=== PATIENT | female | born 1960 | race Caucasian/White ===

== ENCOUNTER → 2017-01-10 | Outpatient (CLI) | payer OTHER | END | disposition home or self-care (01) | LOC: RADMRIMAIN 19:03 | PROVIDERS: ATTEND Orthopaedic Surgery | DX: Z53.9 Procedure and treatment not carried out, unspecified reason (principal) ==

== ENCOUNTER → 2017-01-16 | Outpatient (CLI) | payer OTHER ==
--- NOTE | 2017-01-17 02:56 | MR ---
EXAMINATION TYPE: MR hip RT wo con DATE OF EXAM: 01/16/2017 COMPARISON: NONE HISTORY: Right Hip Pain with Clicking x1 year Standard multiplanar, multisequence MRI departmental protocol Multiplanar, multisequence images of the right hip and pelvis were acquired. FINDINGS: Hip joint spaces are fairly well-maintained. Proximal femurs are intact. There is no eviden ce of avascular necrosis. There is no sign of hip joint effusion. I see no bony destructive process. There is no sign of a pelvic mass. There is mild acetabular spurring. IMPRESSION: Negative MR scan of the right hip joint. Minimal acetabular spurring is noted.
== END | disposition home or self-care (01) ==
LOC: RADMRIMAIN 18:53
PROVIDERS: ATTEND Orthopaedic Surgery
DX: M89.8X5 Other specified disorders of bone, thigh (principal)

== ENCOUNTER → 2017-06-07 | Outpatient (CLI) | payer OTHER ==
--- NOTE | 2017-06-09 10:58 | MM ---
Reason for exam: screening (asymptomatic). Last mammogram was performed 1 year ago. History: Patient is postmenopausal and history of other cancer. Taking estrogen for 5 years beginning at age 52. Physical Findings: A clinical breast exam by your physician is recommended on an annual basis and results should be correlated with mammographic findings. MG Screening Mammo w CAD Bilateral CC and MLO view(s) were taken. Prior study comparison: May 30, 2016, bilateral MG screening mammo w CAD. May 28, 2015, bilateral MG screening mammo w CAD. The breast tissue is heterogeneously dense. This may lower the sensitivity of mammography. No significant changes when compared with prior studies. ASSESSMENT: Benign, BI-RAD 2 RECOMMENDATION: Routine screening mammogram of both breasts in 1 year.
== END | disposition home or self-care (01) ==
LOC: RADMAMWWP 15:13
PROVIDERS: ATTEND Family Medicine
DX: Z12.31 Encounter for screening mammogram for malignant neoplasm of breast (principal)

== ENCOUNTER → 2018-08-07 | Outpatient (CLI) | payer BC ==
--- NOTE | 2018-08-08 10:41 | MM ---
Reason for exam: screening (asymptomatic). Last mammogram was performed 1 year and 2 months ago. History: Patient is postmenopausal and has history of other cancer at age 48. Took estrogen for 5 years beginning at age 52. Physical Findings: A clinical breast exam by your physician is recommended on an annual basis and results should be correlated with mammographic findings. MG Screening Mammo w CAD Bilateral CC and MLO view(s) were taken. Prior study comparison: June 07, 2017, bilateral MG screening mammo w CAD. May 30, 2016, bilateral MG screening mammo w CAD. The breast tissue is heterogeneously dense. This may lower the sensitivity of mammography. No significant changes when compared with prior studies. ASSESSMENT: Benign, BI-RAD 2 RECOMMENDATION: Routine screening mammogram of both breasts in 1 year.
== END | disposition home or self-care (01) ==
LOC: RADMAMWWP 09:47
PROVIDERS: ATTEND Family Medicine
DX: Z12.31 Encounter for screening mammogram for malignant neoplasm of breast (principal)
CPT/HCPCS: 77067

== ENCOUNTER → 2019-08-08 | Outpatient (CLI) | payer BC ==
--- NOTE | 2019-08-09 14:17 | MM ---
Reason for exam: screening (asymptomatic). Last mammogram was performed 1 year ago. History: Patient is postmenopausal and has history of other cancer at age 48. Took estrogen for 5 years beginning at age 52. Physical Findings: A clinical breast exam by your physician is recommended on an annual basis and results should be correlated with mammographic findings. MG 3D Screening Mammo W/Cad Bilateral CC and MLO view(s) were taken. Prior study comparison: August 07, 2018, bilateral MG screening mammo w CAD. June 07, 2017, bilateral MG screening mammo w CAD. The breast tissue is heterogeneously dense. This may lower the sensitivity of mammography. Right upper outer quadrant middle depth focal asymmetry. Left upper inner quadrant anterior middle depth focal asymmetry. ASSESSMENT: Incomplete: need additional imaging evaluation, BI-RAD 0 RECOMMENDATION: Special view mammogram of both breasts. If lesion persists on supplemental views, image directed ultrasound is recommended. [facility] will attempt to contact patient to return for supplemental views and ultrasound if indicated.
== END | disposition home or self-care (01) ==
LOC: RADMAMWWP 09:20
PROVIDERS: ATTEND Family Medicine
DX: Z12.31 Encounter for screening mammogram for malignant neoplasm of breast (principal)
CPT/HCPCS: 77063; 77067

== ENCOUNTER → 2019-08-20 | Outpatient (CLI) | payer BC ==
--- NOTE | 2019-08-20 11:08 | MM ---
Reason for exam: additional evaluation requested from abnormal screening. Last mammogram was performed less than 1 month ago. History: Patient is postmenopausal and has history of other cancer at age 48. Took estrogen for 5 years beginning at age 52. Physical Findings: Nurse did not find any significant physical abnormalities on exam. MG 3D Work Up W/Cad JADE Bilateral spot compression CC, spot compression MLO, and ML view(s) were taken. Prior study comparison: August 08, 2019, bilateral MG 3d screening mammo w/cad. August 07, 2018, bilateral MG screening mammo w CAD. The breast tissue is heterogeneously dense. This may lower the sensitivity of mammography. No discrete lesions persist on additional views. These results were verbally communicated with the patient and result sheet given to the patient on 08/20/19. ASSESSMENT: Negative, BI-RAD 1 RECOMMENDATION: Return to routine screening mammogram schedule for both breasts.
== END | disposition home or self-care (01) ==
LOC: RADMAMWWP 09:01
PROVIDERS: ATTEND Family Medicine
DX: R92.8 Other abnormal and inconclusive findings on diagnostic imaging of breast (principal)
CPT/HCPCS: 77062; 77066

== ENCOUNTER → 2020-09-09 | Outpatient (CLI) | payer BC ==
--- NOTE | 2020-09-14 10:20 | MM ---
Reason for exam: screening (asymptomatic). Last mammogram was performed 1 year and 1 month ago. History: Patient is postmenopausal and has history of other cancer at age 48. Took estrogen for 5 years beginning at age 52. Physical Findings: A clinical breast exam by your physician is recommended on an annual basis and results should be correlated with mammographic findings. MG Screening Mammo w CAD Bilateral CC and MLO view(s) were taken. Prior study comparison: August 08, 2019, bilateral MG 3d screening mammo w/cad. August 07, 2018, bilateral MG screening mammo w CAD. June 07, 2017, bilateral MG screening mammo w CAD. The breast tissue is heterogeneously dense. This may lower the sensitivity of mammography. No significant changes when compared with prior studies. ASSESSMENT: Benign, BI-RAD 2 RECOMMENDATION: Routine screening mammogram of both breasts in 1 year.
== END | disposition home or self-care (01) ==
LOC: RADMAMWWP 09:54
PROVIDERS: ATTEND Family Medicine
DX: Z12.31 Encounter for screening mammogram for malignant neoplasm of breast (principal); Z78.0 Asymptomatic menopausal state
CPT/HCPCS: 77067

== ENCOUNTER → 2021-09-22 | Outpatient (CLI) | payer BC ==
--- NOTE | 2021-09-23 12:55 | MM ---
Reason for exam: screening (asymptomatic). Last mammogram was performed 1 year ago. History: Patient is postmenopausal and has history of other cancer at age 48. Took estrogen for 9 years beginning at age 52. Physical Findings: A clinical breast exam by your physician is recommended on an annual basis and results should be correlated with mammographic findings. MG Screening Mammo w CAD Bilateral CC and MLO view(s) were taken. Technologist: Becca Cai RT (R)(M) Prior study comparison: September 09, 2020, bilateral MG screening mammo w CAD. August 20, 2019, bilateral MG 3d work up w/cad JADE. The breast tissue is heterogeneously dense. This may lower the sensitivity of mammography. There are benign appearing round calcifications bilaterally. There is chronic nodularity in the left breast. There is no discrete abnormality. ASSESSMENT: Benign, BI-RAD 2 RECOMMENDATION: Routine screening mammogram of both breasts in 1 year.
== END | disposition home or self-care (01) ==
LOC: RADMAMWWP 09:02
PROVIDERS: ATTEND Family Medicine
DX: Z12.31 Encounter for screening mammogram for malignant neoplasm of breast (principal); Z78.0 Asymptomatic menopausal state
CPT/HCPCS: 77067

== ENCOUNTER → 2022-09-26 | Outpatient (CLI) | payer BC ==
--- NOTE | 2022-09-27 09:58 | MM ---
Reason for Exam: Screening (asymptomatic). Last screening mammogram was performed 12 month(s) ago. Patient History: Menarche at age 14. First Full-Term at age 21. Hysterectomy at age 45. Postmenopausal. Other cancer, age 48. Currently using Estrogen, beginning at age 52 for 9 years. Risk Values: Ayesha 5 year model risk: 1.0%. NCI Lifetime model risk: 5.3%. Prior Study Comparison: 08/20/2019 Bilateral Diagnostic Mammogram, [facility]. 09/09/2020 Bilateral Screening Mammogram, [facility]. 09/22/2021 Bilateral Screening Mammogram, [facility]. Tissue Density: The breast tissue is heterogeneously dense. This may lower the sensitivity of mammography. Findings: Analyzed By CAD. Pattern appears symmetrical stable. No significant interval change is evident. No suspicious groups of microcalcifications, spiculated or lobular masses, architectural distortion or other secondary signs of malignancy are mammographically apparent. Overall Assessment: Benign, BI-RAD 2 Management: Screening Mammogram of both breasts in 1 year. A negative mammogram report should not preclude additional follow up of suspicious palpable abnormalities. Patient should continue monthly self breast exam. A clinical breast exam by your physician is recommended on an annual basis and results should be correlated with mammographic findings. Electronically signed and approved by: Riki Bowling D.O. Radiologis
== END | disposition home or self-care (01) ==
LOC: RADMAMWWP 09:31
PROVIDERS: ATTEND Family Medicine
DX: Z12.31 Encounter for screening mammogram for malignant neoplasm of breast (principal); Z78.0 Asymptomatic menopausal state
CPT/HCPCS: 77067

== ENCOUNTER 2023-08-23 08:04 | Day surgery (SDC) | payer BC ==
[2023-08-21 16:21] VITALS: BMI 34.0
--- NOTE | 2023-08-23 07:34 | P.GSHP ---
History of Present Illness H&P Date: 08/23/23 CHIEF COMPLAINT: GERD and colon screen HISTORY OF PRESENT ILLNESS: The patient is a 63-year-old female who presents with gastroesophageal reflux disease and need for colon screen. Upper and lower endoscopy were offered for further evaluation and management. PAST MEDICAL HISTORY: Please see list. PAST SURGICAL HISTORY: Please see list. MEDICATIONS: Please see list. ALLERGIES: Please see list. SOCIAL HISTORY: No illicit drug use FAMILY HISTORY: No reports of Crohn disease or ulcerative colitis. REVIEW OF ORGAN SYSTEMS: CONSTITUTIONAL: No reports of fevers or chills. GI: Denies any blood in stools or constipation. PHYSICAL EXAM: VITAL SIGNS: Stable GENERAL: Well-developed pleasant in no acute distress. HEENT: No scleral icterus. Extraocular movements grossly intact. Moist buccal mucosa. NECK: Supple without lymphadenopathy. CHEST: Unlabored respirations. Equal bilateral excursions. CARDIOVASCULAR: Regular rate and rhythm. Distal 2+ pulses. ABDOMEN: Soft, nondistended. MUSCULOSKELETAL: No clubbing, cyanosis, or edema. ASSESSMENT: 1. Gastroesophageal reflux disease 2. Colon screen. PLAN: 1. Recommend proceeding with an upper and lower endoscopy Past Medical History Past Medical History: Cancer, GERD/Reflux Additional Past Medical History / Comment(s): skin CA History of Any Multi-Drug Resistant Organisms: None Reported Additional Past Surgical History / Comment(s): bladder suspension Past Anesthesia/Blood Transfusion Reactions: No Reported Reaction, Motion Sickness Additional Past Anesthesia/Blood Transfusion Reaction / Comment(s): no hx blood transfusion Smoking Status: Never smoker - Past Family History Mother Family Medical History: Cancer Additional Family Medical History / Comment(s): colon Medications and Allergies Home Medications Medication Instructions Recorded Confirmed Type Calcium Carbonate [Calcium] 600 mg PO DAILY 08/21/23 08/21/23 History Cetirizine HCl [Zyrtec] 10 mg PO DAILY 08/21/23 08/21/23 History Cholecalciferol [Vitamin D3 (25 25 mcg PO DAILY 08/21/23 08/21/23 History Mcg = 1000 Iu)] Ferrous Sulfate [Feosol] 325 mg PO DAILY 08/21/23 08/21/23 History Loratadine [Claritin] 10 mg PO DAILY 08/21/23 08/21/23 History Multivitamins, Thera [Multivitamin 1 tab PO DAILY 08/21/23 08/21/23 History (formulary)] Omeprazole 40 mg PO DAILY 08/21/23 08/21/23 History estradioL [Minal 0.0375 MG/24 HR] 1 patch TRANSDERM Q84H 08/21/23 08/21/23 History oxyBUTYnin chloride [oxyBUTYnin 5 mg PO DAILY 08/21/23 08/21/23 History chloride ER] Allergies Allergy/AdvReac Type Severity Reaction Status Date / Time Penicillins Allergy Unknown Verified 08/21/23 15:58 Childhood
[~2023-08-23 08:04] MED LIST: LIDOCAINE 1% (10MG/ML) FOR IV START INTRADERMA PRN
[2023-08-23] MEDS: LACTATED RINGERS 1,000 ML IV SCH (08:21)
[2023-08-23 08:47] VITALS: TEMP 98.1
[2023-08-23] MEDS ORDERED: PROPOFOL 10 MG/ML 20 ML VIAL IV ONE (09:06)
[2023-08-23] MEDS ORDERED: LIDOCAINE 1% INJ 10MG/ML (20 ML MDV) ONE (09:06)
--- NOTE | 2023-08-23 09:19 | P.PCN ---
Date of Procedure: 08/23/23 Description of Procedure: PREOPERATIVE DIAGNOSIS: Gastroesophageal reflux disease. POSTOPERATIVE DIAGNOSIS: Gastroesophageal reflux disease. Gastric polyp Gastritis OPERATION: Esophagogastroduodenoscopy with biopsies along the esophagus, antrum and duodenum SURGEON: Peggy Quintero MD ANESTHESIA: MAC. INDICATIONS: The patient is a 63-year-old female who presents with reflux disease. Benefits and risks of the procedure were described. Informed consent was obtained. DESCRIPTION: The patient was brought into the endoscopy suite and laid in the left lateral decubitus position. An Olympus gastroscope was passed along the posterior oropharynx down to the distal esophagus where the squamocolumnar junction was encountered at 36 cm from the incisors. The stomach was entered and no bile reflux was found. Additional findings are listed below. Biopsies with cold forceps were obtained of the antrum. The first through third portion of the duodenum was examined. Retroflexion of the scope confirmed Hill grade 3 lower esophageal valve. The squamocolumnar junction demonstrated LA grade B erosive e sophagitis. The stomach was desufflated. The patient tolerated the procedure well. FINDINGS: Squamocolumnar junction 36cm from the incisors. Diaphragmatic hiatus at 37 cm. Hiatal hernia, 1 cm Few scattered gastric polyps, 3 mm, benign Hill grade 2 lower esophageal valve. LA grade B erosive esophagitis. Biopsies obtained Biopsies obtained of the duodenum. Chronic gastritis with biopsies obtained. RECOMMENDATIONS: Upper endoscopy as needed.
--- NOTE | 2023-08-23 09:57 | P.PCN ---
Date of Procedure: 08/23/23 Description of Procedure: PREOPERATIVE DIAGNOSIS: Family history colon cancer Colonoscopy screening. POSTOPERATIVE DIAGNOSIS: Colonoscopy screening. OPERATION: Colonoscopy to the cecum, ileocecal valve and appendiceal orifice. SURGEON: Peggy Quintero MD. ANESTHESIA: MAC. INDICATIONS: The patient is a 63-year-old female who presents for colonoscopy screening. Benefits and risks were described and informed consent was obtained. DESCRIPTION OF PROCEDURE: The patient had undergone Golytely prep. The patient had been brought into the operating room and laid in the left lateral decubitus position. After adequate intravenous sedation, the rectum was examined with 2% lidocaine jelly. External hemorrhoids were encountered. The rectal tone was within normal limits. No lesions were palpated in the rectal vault. An Olympus colonoscope was advanced until the cecum, ileocecal valve and appendiceal orifice were clearly viewed. The prep was fair. No scattered diverticulosis was encountered. No colonic polyps were found. No evidence of focal colitis was found. Retroflexion of the scope demonstrated grade 1 internal hemorrhoids without active bleeding or inflammation. The colon was desufflated. The patient had tolerated the procedure well. Withdrawal time was over 6 minutes. FINDINGS: Aronchick preparation quality scale 2+ (1-5) Internal hemorrhoids, grade 3 External prolapsed hemorrhoids, grade 3 No arteriovenous malformations. No adenomatous polyps. No focal colitis. RECOMMENDATIONS: Lower endoscopy in 5 years, 2028 or Cologuard Plan - Discharge Summary Discharge Rx Participant: No New Discharge Prescriptions: Continue estradioL [Minal 0.0375 MG/24 HR] 1 patch TRANSDERM Q84H Loratadine [Claritin] 10 mg PO DAILY Cholecalciferol [Vitamin D3 (25 Mcg = 1000 Iu)] 25 mcg PO DAILY Omeprazole 40 mg PO DAILY Ferrous Sulfate [Iron (65 MG Elemental)] 325 mg PO DAILY oxyBUTYnin chloride [oxyBUTYnin chloride ER] 5 mg PO DAILY Multivitamins, Thera [Multivitamin (formulary)] 1 tab PO DAILY Cetirizine HCl [Zyrtec] 10 mg PO DAILY Calcium Carbonate [Calcium] 600 mg PO DAILY Discharge Medication List Calcium Carbonate [Calcium] 600 mg PO DAILY 08/21/23 [History] Cetirizine HCl [Zyrtec] 10 mg PO DAILY 08/21/23 [History] Cholecalciferol [Vitamin D3 (25 Mcg = 1000 Iu)] 25 mcg PO DAILY 08/21/23 [History] Ferrous Sulfate [Iron (65 MG Elemental)] 325 mg PO DAILY 08/21/23 [History] Loratadine [Claritin] 10 mg PO DAILY 08/21/23 [History] Multivitamins, Thera [Multivitamin (formulary)] 1 tab PO DAILY 08/21/23 [History] Omeprazole 40 mg PO DAILY 08/21/23 [History] estradioL [Minal 0.0375 MG/24 HR] 1 patch TRANSDERM Q84H 08/21/23 [History] oxyBUTYnin chloride [oxyBUTYnin chloride ER] 5 mg PO DAILY 08/21/23 [History] Follow up Appointment(s)/Referral(s): Peggy Quintero MD [STAFF PHYSICIAN] - 09/19/23 11:00 am Patient Instructions/Handouts: *Surgery [facility] - (Anesthesia) Discharge Instructions Outpatient Surgery Activity/Diet/Wound Care/Special Instructions: Colonoscopy in 5 years, 2028 or Cologuard Discharge Disposition: HOME SELF-CARE
[2023-08-23 10:35] VITALS: BP 135/73; PULSE 65; RESP 18
== END 2023-08-23 10:11 | disposition home or self-care (01) ==
LOC: ORWHC2ENDO 08:04
PROVIDERS: ATTEND Surgery Plastic and Reconstructive Surgery
DX: Z12.11 Encounter for screening for malignant neoplasm of colon (principal); K29.50 Unspecified chronic gastritis without bleeding; K64.2 Third degree hemorrhoids; K64.4 Residual hemorrhoidal skin tags; K21.9 Gastro-esophageal reflux disease without esophagitis; K31.7 Polyp of stomach and duodenum; K44.9 Diaphragmatic hernia without obstruction or gangrene; Z80.0 Family history of malignant neoplasm of digestive organs; Z79.899 Other long term (current) drug therapy; Z88.0 Allergy status to penicillin; Z85.828 Personal history of other malignant neoplasm of skin
CPT/HCPCS: 88305; 45378; 43239; J2001; J2704

== ENCOUNTER → 2023-10-31 | Outpatient (CLI) | payer BC ==
--- NOTE | 2023-11-02 12:36 | MM ---
Reason for Exam: Screening (asymptomatic). Last mammogram was performed 1 year(s) and 1 month(s) ago. Patient History: Menarche at age 14. First Full-Term at age 21. Hysterectomy at age 45. Postmenopausal. Other cancer, age 48. Currently using Estrogen, beginning at age 52 for 9 years. Risk Values: Ayesha 5 year model risk: 1.1%. NCI Lifetime model risk: 5.2%. Prior Study Comparison: 09/09/2020 Bilateral Screening Mammogram, [facility]. 09/22/2021 Bilateral Screening Mammogram, [facility]. 09/26/2022 Bilateral MG screening mammo w CAD, [facility]. Tissue Density: The breasts are heterogeneously dense, which may obscure small masses. Findings: Analyzed By CAD. Right breast: There is no suspicious group of microcalcifications or new suspicious mass. Left breast: There is no suspicious group of microcalcifications or new suspicious mass. Overall Assessment: Negative, BI-RAD 1 Management: Screening Mammogram of both breasts in [address] [facility] will attempt to contact patient to return for supplemental views and ultrasound if indicated. Patient should continue monthly self-breast exams. A clinical breast exam by your physician is recommended on an annual basis. This exam should not preclude additional follow-up of suspicious palpable abnormalities. Note on Ayesha scores and lifetime risk: 1. A Ayesha score greater than 3% is considered moderate risk. If this is the case, consider specialist referral to assess eligibility for a risk reducing agent. 2. If overall lifetime risk for the development of breast cancer is 20% or higher, the patient may qualify for future screening with alternating mammogram and breast MRI. Electronically signed and approved by: Kevin Jessica DO
== END | disposition home or self-care (01) ==
LOC: RADMAMWWP 09:10
PROVIDERS: ATTEND Family Medicine
DX: Z12.31 Encounter for screening mammogram for malignant neoplasm of breast (principal); Z78.0 Asymptomatic menopausal state
CPT/HCPCS: 77063; 77067

== ENCOUNTER → 2024-05-08 | Outpatient (CLI) | payer BC ==
--- NOTE | 2024-05-08 11:32 | US ---
EXAMINATION TYPE: US gallbladder DATE OF EXAM: 05/08/2024 COMPARISON: NONE CLINICAL INDICATION: Female, 64 years old with history of R10.11 RUQ PAIN; pain per order TECHNIQUE: Grayscale and color Doppler imaging of the right upper quadrant. FINDINGS: EXAM MEASUREMENTS: Liver Length: 14.0 cm Gallbladder Wall: 0.3 cm CBD: 0.4 cm, color Doppler imaging was utilized to isolate the common bile duct for measurement. Right Kidney: 9.9x4.0x5.3 cm BOOK REPAIRER NOTES: limited due to bowel and gas Pancreas: limited Tail obscured by overlying bowel gas Liver: coarse echotexture Gallbladder: measures upper limits Evidence for sonographic Diana's sign: No CBD: portions seen wnl Right Kidney: No hydronephrosis or masses seen IMPRESSION: 1. Coarse echo pattern to the liver is nonspecific but most typical of hepatic steatosis or mild unde rlying hepatocellular disease. 2. No evidence of gallstones. Gallbladder wall measures at the upper limits of normal in thickness me asuring 3 mm. [facility], , 05/08/2024 11:29 AM
== END | disposition home or self-care (01) ==
LOC: RADUSWWP 07:39
PROVIDERS: ATTEND Surgery Plastic and Reconstructive Surgery
DX: K76.89 Other specified diseases of liver (principal)
CPT/HCPCS: 76705

== ENCOUNTER 2024-05-16 11:17 | Day surgery (SDC) | payer BC ==
--- NOTE | 2024-05-16 08:43 | P.GSHP ---
History of Present Illness H&P Date: 05/16/24 CHIEF COMPLAINT: Paraesophageal hiatal hernia with gastroesophageal reflux disease. HISTORY OF PRESENT ILLNESS: The patient is a 64-year-old female who presents with symptomatic paraesophageal hiatal hernia over one year with gastroesophageal reflux disease. She has completed upper endoscopy workup. Now she presents for surgical intervention. PAST MEDICAL HISTORY: Please see list. PAST SURGICAL HISTORY: Please see list. MEDICATIONS: Please see list. ALLERGIES: Please see list. SOCIAL HISTORY: No illicit drug use FAMILY HISTORY: No reports of Crohn disease or ulcerative colitis. REVIEW OF ORGAN SYSTEMS: CONSTITUTIONAL: No reports of fevers or chills. GI: Denies any blood in stools or constipation. PHYSICAL EXAM: VITAL SIGNS: Stable GENERAL: Well-developed pleasant and in no acute distress. HEENT: No scleral icterus. Extraocular movements grossly intact. Moist buccal mucosa. NECK: Supple without lymphadenopathy. CHEST: Unlabored respirations. Equal bilateral excursions. CARDIOVASCULAR: Regular rate and rhythm. Distal 2+ pulses. ABDOMEN: Soft, nondistended. No peritoneal signs. MUSCULOSKELETAL: No clubbing, cyanosis, or edema. SKIN: Well-perfused. Good skin turgor. REPORTS: Upper endoscopy demonstrates paraesophageal hiatal hernia BARIUM SWALLOW: Images reviewed demonstrating paraesophageal hiatal hernia. This is my independent interpretation. REPORTS: Cardiology risk assessment obtained. Please see chart. ASSESSMENT: 1. Diaphragmatic paraesophageal hiatal hernia with severe gastroesophageal reflux disease. PLAN: 1. Recommend proceeding with a robotic paraesophageal hiatal hernia with possible mesh. 2. Benefits and risks of surgical intervention was discussed including possibility of open technique. 3. Inpatient hospitalization recommended of 2 nights 4. DVT prophylaxis. 5. Antibiotic prophylaxis. 6. She has also completed a very low caloric high-protein diet to address underlying hepatomegaly. 7. Non narcotic pain management including abdominal wall block described 8. Blood sugar glucose described. 9. Weight loss management described. Past Medical History Past Medical History: Cancer, GERD/Reflux Additional Past Medical History / Comment(s): Hx skin cancer. Vertigo. History of Any Multi-Drug Resistant Organisms: None Reported Past Surgical History: Bladder Surgery, Section Additional Past Surgical History / Comment(s): Bladder suspension, colonoscopy, EGD. Past Anesthesia/Blood Transfusion Reactions: Motion Sickness, Postoperative Nausea & Vomiting (PONV) Additional Past Anesthesia/Blood Transfusion Reaction / Comment(s): No hx blood transfusion. Vertigo. Smoking Status: Never smoker - Past Family History Mother Family Medical History: Cancer Additional Family Medical History / Comment(s): Colon cancer. Medications and Allergies Home Medications Medication Instructions Recorded Confirmed Type Cholecalciferol [Vitamin D3 (25 25 mcg PO HS 08/21/23 05/15/24 History Mcg = 1000 Iu)] Ferrous Sulfate [Iron (65 MG 325 mg PO HS 08/21/23 05/15/24 History Elemental)] Loratadine [Claritin] 10 mg PO HS 08/21/23 05/15/24 History Multivitamins, Thera [Multivitamin 1 tab PO HS 08/21/23 05/15/24 History (formulary)] estradioL [Minal 0.0375 MG/24 HR] 1 patch TRANSDERM SUWE 08/21/23 05/15/24 History oxyBUTYnin chloride [oxyBUTYnin 5 mg PO HS 08/21/23 05/15/24 History chloride ER] Calcium With Vitamin D3 1 tab PO HS 02/13/24 05/15/24 History Fexofenadine HCl [Karlee Allergy] 180 mg PO HS 02/13/24 05/15/24 History Allergies Allergy/AdvReac Type Severity Reaction Status Date / Time bee venom protein (honey bee) Allergy Swelling Verified 05/15/24 09:49 Penicillins Allergy Unknown Verified 05/15/24 09:49 Childhood
[~2024-05-16 11:17] MED LIST changes: +HYDROmorphone 0.5 MG/0.5 ML SYRINGE IVP PRN; +ONDANSETRON 4 MG/2 ML VIAL IVP PRN
[2024-05-16] MEDS: IV FLUID CONTINUATION 1,000 ML IV ONE (11:31)
[2024-05-16] MEDS: ACETAMINOPHEN TAB 500 MG TAB PO PRN (11:51)
[2024-05-16] MEDS: LACTATED RINGERS 1,000 ML IV SCH (11:53)
[2024-05-16 12:12] LABS: Basophils % (A) 0 %; Eosinophils # (A) 0.3 k/uL (0-0.7); Eosinophils % (A) 5 %; HCT 38.4 % (34.0-46.0); HGB 12.5 gm/dL (11.4-16.0); Lymphocytes # (A) 1.2 k/uL (1.0-4.8); Lymphocytes % (A) 21 %; MCH 28.6 pg (25.0-35.0); MCHC 32.5 g/dL (31.0-37.0); Mean Platelet Volume 9.1; Monocytes # (A) 0.2 k/uL (0-1.0); Monocytes % (A) 4 %; Neutrophils # (A) 3.8 k/uL (1.3-7.7); Neutrophils % (A) 68 %; Platelet Count 234 k/uL (150-450); RBC 4.36 m/uL (3.80-5.40); RDW 13.3 % (11.5-15.5); WBC 5.6 k/uL (3.8-10.6)
[2024-05-16] MEDS: SCOPOLAMINE 1 MG/72 HR PATCH TRANSDERM STA (12:43)
[2024-05-16] MEDS: fentaNYL (PF) 50 MCG/ML 2 ML AMP IVP STA (12:44)
[2024-05-16] MEDS: MIDAZOLAM 2 MG/2 ML VIAL IV STA (12:45)
[2024-05-16] MEDS: DEXAMETHASONE SOD PHOSPHATE 4 MG/ML 1 ML VIAL IV ONE (12:46)
[2024-05-16] MEDS: ONDANSETRON 4 MG/2 ML VIAL IVP ONE (12:46)
[2024-05-16] MEDS: HEPARIN SODIUM,PORCINE 5,000 UNIT/ML 1 ML VIAL SQ PRN (12:48)
[2024-05-16] MEDS ORDERED: KETOROLAC 15 MG/ML 1 ML VIAL ONE (12:55)
[2024-05-16] MEDS ORDERED: HYDROmorphone (PF) 1 MG/ML ONE (12:55)
[2024-05-16] MEDS ORDERED: SODIUM CHLORIDE 0.9% (PF) 10 ML VIAL ONE (12:55)
[2024-05-16] MEDS ORDERED: fentaNYL (PF) 50 MCG/ML 2 ML AMP ONE (12:55)
[2024-05-16] MEDS ORDERED: ROPIVACAINE 5 MG/ML 30 ML VIAL ONE (12:55)
[2024-05-16] MEDS ORDERED: ROCURONIUM 10 MG/ML (5 ML VIAL) IV ONE (12:55)
[2024-05-16] MEDS ORDERED: MIDAZOLAM 2 MG/2 ML VIAL ONE (12:55)
[2024-05-16] MEDS ORDERED: LIDOCAINE 1% INJ 10MG/ML (20 ML MDV) ONE (12:55)
[2024-05-16] MEDS ORDERED: SUCCINYLCHOLINE CHLORIDE 200 MG/10 ML VIAL IV ONE (12:55)
[2024-05-16] MEDS ORDERED: NEOSTIGMINE 1 MG/ML 10 ML VIAL ONE (12:55)
[2024-05-16] MEDS ORDERED: PROPOFOL 10 MG/ML 20 ML VIAL IV ONE (12:55)
[2024-05-16] MEDS ORDERED: GLYCOPYRROLATE 0.2 MG/ML 2 ML VIAL ONE (12:55)
[2024-05-16 13:18] LABS: ALT 18 U/L (4-34); AST 27 U/L (14-36); African American GFR (CKD) >90 (>60 ml/min/1.73 sqM); Albumin 4.1 g/dL (3.5-5.0); Alkaline Phosphatase 69 U/L (38-126); Anion Gap 6 mmol/L; Blood Urea Nitrogen 18 mg/dL (7-17); Calcium 9.3 mg/dL (8.4-10.2); Carbon Dioxide 24 mmol/L (22-30); Chloride 107 mmol/L (98-107); Glucose 89 mg/dL (74-99); Non-African American GFR(CKD) 80 (>60 ml/min/1.73 sqM); Potassium 4.3 mmol/L (3.5-5.1); Sodium 137 mmol/L (137-145); Total Bilirubin 0.4 mg/dL (0.2-1.3); Total Protein 6.5 g/dL (6.3-8.2)
[2024-05-16] MEDS: LIDOCAINE 1%-EPI 1:100,000 20 ML VIAL SQ ONE (13:27)
--- NOTE | 2024-05-16 14:43 | P.ANPRN ---
Procedure Note - Anesthesia - Nerve Block Performed Bilateral Erector Spinae Single Time Out Performed: Yes (1228) Date of Procedure: 05/16/24 Procedure Start Time: 12:29 Procedure Stop Time: 12:36 Location of Patient: PreOp Indication: Acute Post-Operative Pain, Requested by Surgeon Specifically requested for management of pain by : Peggy Quintero Sedation Type: Sedate with meaningful contact maintained Preparation: Sterile Prep Position: Supine Catheter: None Needle Types: Pajunk Needle Gauge: 21 Ultrasound used to visualize needle placement: Yes Ultrasound used to observe medication spread: Yes Injectate: 0.5% Ropivacaine (see comment for volume) (15CC+10CC NACL PF) Blood Aspirated: No Pain Paresthesia on Injection Noted: No Resistance on Injection: Normal Image Stored and Saved: Yes Events: Uneventful and Well Tolerated
--- NOTE | 2024-05-16 15:00 | P.OP ---
Date of Procedure: 05/16/24 Description of Procedure: DESCRIPTION OF PROCEDURE(S): SURGEON: ANNABELLA ORO MD PREOPERATIVE DIAGNOSES: 1. Gastroesophageal reflux disease. 2. Paraesophageal hiatal hernia, midline. 3. Obesity excess calories, BMI 31.5 4. Seasonal allergies 5. Postop nausea and vomiting 6. Motion sickness POSTOPERATIVE DIAGNOSES: 1. Gastroesophageal reflux disease. 2. Paraesophageal hiatal hernia, midline, incarcerated, initial. 3. Obesity excess calories, BMI 31.5 4. Seasonal allergies 5. Postop nausea and vomiting 6. Motion sickness OPERATION: 1. Robotic-assisted da Raul Xi laparoscopic reduction and repair of incarcerated paraesophageal hiatal hernia, 3 x 3 cm, with [place] Biopatch A 8 x 8 cm. 2. Intraoperative esophagogastroduodenoscopy 3. Esophageal dilation 56-Gambian bougie ANESTHESIA: General with local anesthetic. ESTIMATED BLOOD LOSS: 5 mL SPECIMENS REMOVED: None. COMPLICATIONS: None. FINDINGS: 1. Incarcerated midline paraesophageal hiatal hernia, 3 x 3 cm reduced 2. Bougie 56-Gambian placed 3. 3 x 3 cm paraesophageal incarcerated diaphragmatic hiatal hernia with moderate dissection into the mediastinum. 4. Intra-abdominal esophageal length over 3 cm obtained 5. [place] Biopatch A onlay mesh placed. INDICATIONS: The patient is a 64-year-old female who presents with regurgitation, gastroesophageal reflux disease and a symptomatic diaphragmatic hiatal hernia. Preoperative workup including upper endoscopy demonstrated a Hill grade 4 lower esophageal valve. Given the severity of her symptoms, particularly of her symptomatic diaphragmatic hiatal hernia, she had elected for surgical intervention. Benefits and risks including bleeding, infection, recurrence, dysphagia, injury to the lung, need for further surgery was described at length. Informed consent was obtained. DESCRIPTION: The patient was brought into the operating room and placed in supine position. Preoperatively she had received Heparin subcutaneously for DVT prophylaxis. After general induction, the abdomen was prepped and draped in standard sterile fashion. The patient had previously voided prior to coming to the operating room. [place] draping was placed along the abdomen. A timeout protocol was confirmed with the surgical team, for which the patient's name, procedure to be performed including DVT prophylaxis with bilateral SCDs, and preoperative antibiotics were also confirmed. A robotic da Raul Xi system was prepped and primed. At 10 cm from the xiphoid to just below the umbilicus, proposed port sites were marked with indelible marker along the left axillary line, left mid-clavicular line with each ports were marked 10 cm from each other. A 5 mm 0 degrees laparoscopic trocar entry was performed along the left upper quadrant. The abdomen was insufflated to 15 mmHg pressure she tolerated well. Diagnostic laparoscopy demonstrated no injury to bowel, viscera, or mesentery. The liver surface was unremarkable. No injury had occurred to the small bowel or viscera. Along the hiatus, a defect was found anteriorly. Recurrent left tubal hernia was confirmed. Next, one 8 mm robotic port was placed along the right upper abdomen. An 8-mm port was were placed along the left lateral abdominal wall. The camera 8-mm port was maintained along the epigastrium via the hernia defect. Another 12 mm port was placed along the left upper abdominal wall after exchanging the 5 mm port. Please note that the ports were placed at least 20 cm away from the target anatomy. Care was taken to check that each robotic arm were safely away from collision with the bed or the patient. At the epigastrium, a median sized Sabino liver retractor was placed under direct visualization with the Iron Tub Washer placed over the right shoulder of the patient. The additional third robotic arm was placed along the left aspect of the patient. The patient was repositioned in reverse Trendelenburg position at 25-degrees after lowering the bed. The robot was docked above the left side of the patient. Using a grasper for arm 3, a grasper for arm 1, including vessel sealer for arm 2, the robotic system was docked and primed as described. Instruments were interchanged by the blood donor unit assistant. I had sat at the console. The gastrohepatic ligament was cleaved using a vessel sealer. Next, the phrenoesophageal ligament was mobilized and the distal esophagus was mobilized circumferentially with care of to the bilateral vagi nerves. The left and right crura was identified. A midline large hiatal hernia and sac was found. Circumferentially, the hernia sac was excised and brought into the peritoneal cavity. Care was taken to avoid any gastrotomy to the upper pole of the stomach. The measured defect was consistent with 3 cm axial length and 3 cm in width. The distal esophagus at least 3 cm was brought into the abdominal cavity. Once the hiatus and crura was dissected, 2-0 VLOC suture was placed initially with a [id number] suture to reapproximate the diaphragmatic hiatus posteriorly. To buttress the repair, a [place] Biopatch A was prepared along the back table as to reinforce the repair as an underlay. The mesh was placed along the crural repair and tagged using horizontal mattress sutures using 2-0 VLOC. I went to the head of the bed to perform intraoperative esophagogastroduodenoscopy. A 56-Gambian bougie was carefully placed along the posterior oropharynx through the hiatus and then removed. An Olympus gastroscope was passed through posterior oropharynx, where the GE junction was found distal to the diaphragmatic hiatus. The intra-abdominal esophageal length obtained during the case was over 3 cm. The stomach was entered. Retroflexion of the scope confirmed a Hill grade 1 lower esophageal valve. Duodenal ulcers along the first portion of duodenum was confirmed without bleeding. The stomach had been desufflated. No evidence of leaks were found either of the mucosal defects of the esophagus or stomach. The hiatal closure was consistent with a 56 [place] bougie as a bougie was passed. This concluded the endoscopic portion of the case. The robot was undocked from the patient. I re-scrubbed into the case. All instruments and pneumoperitoneum were evacuated from the abdominal cavity. Incisions were reapproximated using 4-0 Monocryl in an interrupted subcuticular fashion. Liquid glue was applied to the skin. Local anesthetic was infiltrated in all wounds for postop analgesia. Multiple intra-abdominal films were obtained. At the end of the procedure, needle, sponge, and instrument count was verified correct by the surgical product sales consultant. The patient had tolerated the procedure well and was taken to the postanesthesia unit in stable condition. Intraoperative films were reviewed with the patient's family who was pleased with the level of care.
[2024-05-16] MEDS: droPERidol 5 MG/2 ML VIAL IVP ONE (15:51)
[2024-05-16] MEDS: DEXAMETHASONE SOD PHOSPHATE 10 MG/ML 1 ML VIAL IVP STA (16:10)
[2024-05-16] MEDS: SIMETHICONE 40 MG/0.6 ML DROPS 2,000 MG/30 ML BOTTLE PO SCH (16:11)
[2024-05-16] MEDS: ONDANSETRON 4 MG/2 ML VIAL IVP SCH (16:49)
[2024-05-16] MEDS: METOCLOPRAMIDE 5 MG/ML 2 ML VIAL IVP SCH (16:49)
[2024-05-17] MEDS: DEXAMETHASONE SOD PHOSPHATE 4 MG/ML 1 ML VIAL IVP SCH (00:11)
[2024-05-17 09:07] VITALS: BP 113/64; PULSE 76; RESP 18; TEMP 98.3
[2024-05-17 13:16] VITALS: BMI 31.5
--- NOTE | 2024-05-17 13:20 | FL ---
SINGLE CONTRAST esophagram: CLINICAL HISTORY: 64 year-old female rule out leak/obstruction, patient status post hiatal hernia re pair. TECHNIQUE: Single contrast exam performed with Isovue-370 contrast. Total fluoroscopy time: 3 minutes 12 seconds. Total images: None. Real-time fluoroscopy was provided to speech pathology. Total dose: 674.13 mGycm2. FINDINGS: The patient swallowed oral contrast without difficulty or delay. However, there is pooling of contra st in the distal esophagus on the initial swallow. A dry swallow helps to promote passage across the esophagus. There is string-like several across the GE junction. Prominent air within the fundus of th e stomach. The patient had a total of only 2 or 3 swallows. There is persistent relative obstruction at the level of the GE junction. At the end of the exam, contrast pooled to the lower third chest. Ep isodes of intraesophageal reflux and tertiary peristalsis in the esophagus attempts to clear the cont rast. However, there is no extravasation of contrast to suggest a leak. Trace postsurgical free air right side of the abdomen. IMPRESSION: 1. Relative moderate obstruction at the level of the GE junction probably due to postoperative edema. The patient's diet should be advanced carefully. Follow-up exam can also be considered. 2. No evidence of leak status post hiatal hernia repair. 3. Trace posterior free air below the right hemidiaphragm. [facility], , 05/17/2024 1:17 PM
--- NOTE | 2024-05-17 13:50 | P.DS ---
Providers Expected date of discharge: 05/17/24 Attending physician: Peggy Quintero Consults: 05/16/24 08:44 Consult Physician Routine Consulting Provider: [facility] Consult Reason/Comments: [facility] Do you want consulting provider notified?: Yes Primary care physician: Parker Manriquez [facility] Course: Discharge diagnosis 1. Gastroesophageal reflux disease. 2. Paraesophageal hiatal hernia, midline, incarcerated, initial. 3. Obesity excess calories, BMI 31.5 4. Seasonal allergies 5. Postop nausea and vomiting 6. Motion sickness 7. Moderate obstruction noted on upper GI likely due to postoperative edema Hospital course The patient is a 64-year-old female who presents with regurgitation, gastroesophageal reflux disease and a symptomatic diaphragmatic hiatal hernia. Patient is status post robotic assisted laparoscopic reduction and repair of incarcerated paraesophageal hiatal hernia. Upper GI reports relative moderate obstruction at the level of the GE junction likely due to postoperative edema. Patient is tolerating diet. Her pain is controlled. She is having flatus. Denies any difficulty urinating. She has been up and ambulating. She is stable for discharge. Physician Machine Castings Plasterer note has been reviewed by physician. Signing provider agrees with the documented findings, assessment, and plan of care. Patient Condition at Discharge: Stable Plan - Discharge Summary Discharge Rx Participant: No New Discharge Prescriptions: New Acetaminophen Tab [Tylenol] 1,000 mg PO Q6HR PRN #30 tablet PRN Reason: Pain Ondansetron Odt [Zofran Odt] 4 mg PO Q8HR PRN #9 tab PRN Reason: Nausea bisacodyL [Dulcolax] 5 mg PO DAILY PRN #10 tab PRN Reason: Constipation Simethicone 40 mg/0.6 ml Drops [Mylicon Drops] 40 mg PO PCHS PRN #30 ml PRN Reason: Gas Omeprazole [PriLOSEC] 40 mg PO DAILY #30 cap Continue estradioL [Minal 0.0375 MG/24 HR] 1 patch TRANSDERM SUWE Loratadine [Claritin] 10 mg PO HS oxyBUTYnin chloride [oxyBUTYnin chloride ER] 5 mg PO HS Fexofenadine HCl [Karlee Allergy] 180 mg PO HS Discontinued Cholecalciferol [Vitamin D3 (25 Mcg = 1000 Iu)] 25 mcg PO HS Ferrous Sulfate [Iron (65 MG Elemental)] 325 mg PO HS Multivitamins, Thera [Multivitamin (formulary)] 1 tab PO HS Calcium With Vitamin D3 1 tab PO HS Discharge Medication List Loratadine [Claritin] 10 mg PO HS 08/21/23 [History] estradioL [Minal 0.0375 MG/24 HR] 1 patch TRANSDERM SUWE 08/21/23 [History] oxyBUTYnin chloride [oxyBUTYnin chloride ER] 5 mg PO HS 08/21/23 [History] Fexofenadine HCl [Karlee Allergy] 180 mg PO HS 02/13/24 [History] Acetaminophen Tab [Tylenol] 1,000 mg PO Q6HR PRN #30 tablet 05/17/24 [Rx] Omeprazole [PriLOSEC] 40 mg PO DAILY #30 cap 05/17/24 [Rx] Ondansetron Odt [Zofran Odt] 4 mg PO Q8HR PRN #9 tab 05/17/24 [Rx] Simethicone 40 mg/0.6 ml Drops [Mylicon Drops] 40 mg PO PCHS PRN #30 ml 05/17/24 [Rx] bisacodyL [Dulcolax] 5 mg PO DAILY PRN #10 tab 05/17/24 [Rx] Follow up Appointment(s)/Referral(s): Peggy Quintero MD [STAFF PHYSICIAN] - 05/21/24 Activity/Diet/Wound Care/Special Instructions: Liquid diet only for 2 weeks No lifting over 4 pounds in 4 weeks May shower No soaking in bath tubs for 2 weeks Please notify your surgeon if you develop nausea and vomiting including new onset of abdominal pain. Please ambulate at all times. Use Simethicone, Gas-X, Tylenol scheduled for the next 24-48 hours for best pain relief. Use ice along incisions for the today to prevent swelling. Please open, cut, crush pills larger than the size of a tic tack No carbonated beverages. No straws. Do not remove scopolamine patch for 3 days, if present Do not take vitamins until seen by surgeon due to increased bleeding risk with these medications Avoiding Gas Avoid drinking through a straw. Do not chew gum or tobacco. These actions cause you to swallow air, which produces excess gas in your stomach. Chew with your mouth closed. Avoid any foods that cause stomach gas and distention. These foods include corn, dried beans, peas, lentils, onions, broccoli, cauliflower and any food from the cabbage family. Avoid carbonated drinks, alcohol, citrus and tomato products. Carbonated drinks (sodas) are not allowed for the first six to eight weeks after surgery. After this time you can try them again in small amounts Clear Liquid Diet The first diet after surgery is the clear liquid diet. It includes the following liquids: Apple juice Cranberry juice Grape juice Chicken broth Beef broth Flavored gelatin (Jell-O) Decaf tea and coffee Caffeinated beverages are permitted based on tolerance [facility] [place] ice Full Liquid Diet The full liquid diet contains anything on the clear liquid diet, plus: Milk, soy, rice and almond (no chocolate) Cream of wheat, cream of rice, grits Strained creamed soups (no tomato or broccoli) Vanilla and strawberry-flavored ice cream Sherbet Blended, custard styled or whipped yogurt (plain or vanilla only) Vanilla and butterscotch pudding (no chocolate or coconut) Nutritional drinks including Ensure, Boost, [place] Instant Breakfast (no chocolate-flavored) Note: Dairy products, such as milk, ice cream and pudding, may cause diarrhea in some people just after surgery. You may need to avoid milk products. If so, substitute them with lactose-free beverages, such as soy, rice, Lactaid or almond milks. Discharge Disposition: HOME SELF-CARE
== END 2024-05-17 15:40 | disposition home or self-care (01) ==
LOC: OR 11:17 → 4SSUR 14:51 → OR 05-17 15:40
PROVIDERS: ATTEND Surgery Plastic and Reconstructive Surgery
DX: K44.0 Diaphragmatic hernia with obstruction, without gangrene (principal); K21.9 Gastro-esophageal reflux disease without esophagitis; J30.2 Other seasonal allergic rhinitis; F17.200 Nicotine dependence, unspecified, uncomplicated; R16.0 Hepatomegaly, not elsewhere classified; E66.811 Obesity, class 1; Z85.828 Personal history of other malignant neoplasm of skin; Z68.31 Body mass index [BMI] 31.0-31.9, adult; Z01.818 Encounter for other preprocedural examination; Z80.0 Family history of malignant neoplasm of digestive organs; Z91.030 Bee allergy status; Z88.0 Allergy status to penicillin; Z79.899 Other long term (current) drug therapy
CPT/HCPCS: 43282; S2900; 64999; 74210; 80053; 85025

== ENCOUNTER → 2024-10-31 | Outpatient (CLI) | payer BC ==
--- NOTE | 2024-10-31 14:37 | CA ---
Stress Echo Report Arlene Badillo Age: 64 Gender: F : 1960 Exam Date: 10/31/2024 10:53 Exam Location: [place] [facility] Ht (in): 61 Wt (lb): 172 Ordering Physician: Parker Manriquez MD Referring Physician: Parker Manriquez MD Lock Expert: CINDY Technologist Procedure CPT: Indication: R06.09 Dyspnea ICD-9 Codes: Rhythm: Patient History: Cardiac Medications: ESTROGEN, OTC Medications in past 24 hours: Contrast: N/A Stress Results Protocol: Douglas Total dose(mL): NA Exercise Duration (min:sec): 6:[address] Depression (mm): Angina Score: Lou Score: METS: 7.3 Resting HR: 90 Resting BP: 127 / 65 Peak HR: 155 Peak BP: / 76 Max Predicted HR: 158 98 % Max Predicted HR Target HR: 134 Double Product: Stress Summary: BP Response: Reason for Termination: MAX EXERTION/TARGET HR Cardiac Symptoms: BISI ECG Analysis Resting ECG: Stress ECG: Arrhythmia: Echo Analysis Resting Echo: Peak Echo Analysis: MEASUREMENTS (Male/Female) Normal Values CONCLUSIONS Reason for stress test: Shortness of breath on exertion Low average exercise capacity of 6 minutes on a Odu[place]as protocol Hypertensive response to exercise, peak blood pressure 213/76 mmHg No ECG or echocardiographic evidence for ischemia Dr. Stevenson Lopez MD (Electronically Signed) Final Date: 31 Oct 2024 14:36
== END | disposition home or self-care (01) ==
LOC: RADNMMAIN 10:26
PROVIDERS: ATTEND Family Medicine
DX: R06.09 Other forms of dyspnea (principal); I10 Essential (primary) hypertension
CPT/HCPCS: 93351